=== PATIENT | male | born 1970 | race American Indian/Alaskan Native ===

== ENCOUNTER 2019-02-02 11:31 | Emergency (ER) | payer OTHER ==
[2019-02-02 12:15] VITALS: BP 136/64
[2019-02-02] MEDS ORDERED: BOOSTRIX IM ONE (12:21)
--- NOTE | 2019-02-02 12:23 | Event Note ---
ED Screening Note ED Screening Note: pt using pneumatic stapler has staple in left hand happened 1 1/2 hour [employer] unsure of last tetanus This initial assessment/diagnostic orders/clinical plan/treatment(s) is/are subject to change based on patients health status, clinical progression and re- assessment by fellow clinical providers in the ED. Further treatment and workup at subsequent clinical providers discretion. Patient/guardian urged not to elope from the ED as their condition may be serious if not clinically assessed and managed. Initial orders include: XR of the left hand and tetanus immunization
--- NOTE | 2019-02-02 13:06 | XRay Report ---
LEFT HAND 3 VIEW(S) INDICATION / CLINICAL INFORMATION: Trauma. Stable in hand. COMPARISON: None available. FINDINGS: BONES / JOINT(S): No acute fracture or subluxation. No significant arthritis. SOFT TISSUES: A single metal staple is identified in the volar soft tissues at the base of the third metacarpal. It appears to lie in the interspace between the third and fourth metacarpals and does not appear to randall the bone. No soft tissue air. ADDITIONAL FINDINGS: None. A single metal staple in the volar soft tissues at the base of the third metacarpal. No apparent bony injury. No signs of infection. Signer Name: Virgil Brink MD Signed: 02/02/2019 1:01 PM Workstation Name: [id number]
[2019-02-02] MEDS ORDERED: XYLOCAINE 1% 20 mL INFILTRATI ONE (13:36)
[2019-02-02] MEDS ORDERED: MORPHINE IM ONE (14:40)
--- NOTE | 2019-02-02 15:12 | Emergency Department Report ---
Upper Extremity - HPI Chief Complaint: Extremity Injury, Upper Stated Complaint: STAPLE IN LT HAND Time Seen by Provider: 02/02/19 13:19 Upper Extremity: Left Hand Occurred When: Today Mechanism: Other (staple gun injury) Severity: moderate Symptoms: Yes Pain with Movement, Yes Limited Range of Movement, No Deformity, No Numbness, No Weakness, No Swelling Other History: Patient states that yes and only stapled his hand with an industrial staple gun at work while being distracted. ED Review of Systems ROS: Stated complaint: STAPLE IN LT HAND Other details as noted in HPI Constitutional: denies: chills, fever Eyes: denies: eye pain, eye discharge, vision change ENT: denies: ear pain, throat pain Respiratory: denies: cough, shortness of breath, wheezing Cardiovascular: denies: chest pain, palpitations Endocrine: no symptoms reported Gastrointestinal: denies: abdominal pain, nausea, diarrhea Genitourinary: denies: urgency, dysuria Musculoskeletal: denies: back pain, joint swelling, arthralgia Skin: denies: rash, lesions Neurological: denies: headache, weakness, paresthesias Psychiatric: denies: anxiety, depression Hematological/Lymphatic: denies: easy bleeding, easy bruising ED Past Medical Hx - Past Medical History Previous Medical History?: No - Surgical History Past Surgical History?: No - Social History Smoking Status: Current Every Day Smoker Substance Use Type: Alcohol - Medications Home Medications: Home Medications Medication Instructions Recorded Confirmed Last Taken Type HYDROcodone/APAP 7.5-325 [[place] 1 each PO Q6HR PRN #15 tablet 02/02/19 Unknown Rx 7.5/325] Ibuprofen [Motrin] 800 mg PO Q8HR PRN #30 tablet 02/02/19 Unknown Rx cephALEXin [Keflex] 500 mg PO Q6HR #28 capsule 02/02/19 Unknown Rx Upper Extremity Exam - Exam General: Vital signs noted. No distress. Alert and acting appropriately. Head and Torso: No HEENT Abnormality, No Neck Tenderness, No Abdominal Tenderness Shoulder Exam: No Shoulder Tenderness, No Clavicle Tenderness Arm Exam: No Arm/Humerus Tenderness, No Arm Deformity Elbow: No Elbow Tenderness Wrist: No Wrist Tenderness Hand: Yes Hand Tenderness (there is a entry wound to the palmar aspect of the left hand over the third metacarpal with a good pulses along the radial and ulnar arteries and good collaterals. Patient is also neurologically intact along the median, radial, ulnar nerve), No Digit(s) Deformity CMS Exam: Yes Broken Skin ED Course Vital Signs 02/02/19 12:02 Temperature 97.9 F Pulse Rate 55 L Respiratory 18 Rate Blood Pressure 136/64 O2 Sat by Pulse 97 Oximetry - Procedure Description Procedures done: Form body removal. Patient's left hand was thoroughly cleansed with normal saline and Betadine along with ChloraPrep. Patient and was placed under sterile conditions. A 15 blade was used on palmar aspect of the left hand over the third metacarpal. Full tissue dissection down to the foreign body was done and multiple attempts were made to dislodge the foreign body to no avail ED Medical Decision Making - Radiology Data Radiology results: report reviewed - Medical Decision Making Attempts made to dislodge the foreign body to no avail The patient was neurovascularly intact after the procedure with good sensation throughout the median, ulnar, radial nerve pattern of the hand. Patient also had good radial pulses with good collaterals when checked Discussed patient with Dr. Ellis and patient will follow up in the morning. Patient politely declined sutures Critical care attestation.: If time is entered above; I have spent that time in minutes in the direct care of this critically ill patient, excluding procedure time. ED Disposition Clinical Impression: Acute foreign body of hand Disposition: - TO HOME OR SELFCARE Is pt being admited?: No Does the pt Need Aspirin: No Condition: Stable Instructions: Soft Tissue Foreign Body (ED) Additional Instructions: return if worse Please follow up with the orthopedic surgeon provided to you Prescriptions: cephALEXin [Keflex] 500 mg PO Q6HR #28 capsule Ibuprofen [Motrin] 800 mg PO Q8HR PRN #30 tablet PRN Reason: Pain HYDROcodone/APAP 7.5-325 [[place] 7.5/325] 1 each PO Q6HR PRN #15 tablet PRN Reason: Pain Referrals: NEEMA FISHER MD [Primary Care Provider] - 3-5 Days RICHARD ELLIS MD [Staff Physician] - 3-5 Days Time of Disposition: 16:40
[2019-02-02] MEDS ORDERED: DILAUDID IM ONE (15:51)
[2019-02-02] MEDS ORDERED: DILAUDID ONE (15:52)
[2019-02-02] MEDS ORDERED: ZOFRAN IM ONE (15:52)
[2019-02-02] MEDS ORDERED: TORADOL IM ONE (16:06)
[2019-02-02] MEDS ORDERED: ZOFRAN ODT PO ONE (16:36)
[2019-02-02] MEDS ORDERED: ZOFRAN ODT ONE (16:39)
== END 2019-02-02 16:54 | disposition home or self-care (01) ==
LOC: EDSEX → ED 11:31
DX: M79.5 Residual foreign body in soft tissue (principal); F17.200 Nicotine dependence, unspecified, uncomplicated; Z79.899 Other long term (current) drug therapy
CPT/HCPCS: 10120; 73130; 90471; 90715; 96372; 99283; J1170; J1885; J2270; J2405; Q0162